=== PATIENT | male | born 1960 | race Caucasian/White ===

== ENCOUNTER 2018-03-01 17:48 | Emergency (ER) | payer OTHER ==
[2018-03-01] MEDS ORDERED: methylPREDNISolone SUCCINATE 125 MG/2 ML VIAL IVP STA (17:57)
[2018-03-01] MEDS ORDERED: EPINEPHrine 1 MG/ML AMP IM STA (17:57)
--- NOTE | 2018-03-01 18:00 | ED Physician Documentation ---
History of Present Illness - Stated complaint Stated Complaint: ALLERGIC REACTION - Chief complaint Chief Complaint: Allergic Rx - History obtained from History obtained from: Patient - History of Present Illness Timing: Today (Stung by bees to face a few hours ago with facial swelling. No throat swelling or dyspnea. Took benadryl 50mg [employer]) Review of Systems Constitutional: reports: Reviewed and negative Ears: reports: Reviewed and negative Nose: reports: Reviewed and negative PD PAST MEDICAL HISTORY - Present Medications Home Medications: Ambulatory Orders Medication Instructions Recorded Confirmed Aspirin 81 mg PO DAILY 03/01/18 03/01/18 Atorvastatin [Lipitor] 10 mg DAILY 03/01/18 03/01/18 EPINEPHrine [Epinephrine] 0.3 mg IJ ONCE PRN #2 auto.injct 03/01/18 Lisinopril 20 mg PO BID 03/01/18 03/01/18 predniSONE [Deltasone] 60 mg PO DAILY 5 Days tablet 03/01/18 - Allergies Allergies/Adverse Reactions: Allergies Allergy/AdvReac Type Severity Reaction Status Date / Time bee venom protein (honey bee) Allergy Edema Verified 03/01/18 17:57 PD ED PE NORMAL - Vitals Vital signs reviewed: Yes - General General: Alert and oriented X 3, No acute distress - HEENT HEENT: PERRL, EOMI, Other (Very significant facial edema, more left than right but involves both sides in the upper lips especially, there is no posterior oropharyngeal edema and his airway is wide open.) - Neck Neck: Supple, no meningeal sign, No bony TTP - Cardiac Cardiac: RRR, No murmur - Respiratory Respiratory: No respiratory distress, Clear bilaterally - Abdomen Abdomen: Non tender - Neuro Neuro: Alert and oriented X 3, Normal speech - Psych Psych: Normal mood, Normal affect Results - Vitals Vitals: Vital Signs - 24 hr 03/01/18 03/01/18 03/01/18 17:55 18:24 18:29 Temperature 36.1 C L Heart Rate 91 84 85 Respiratory 20 14 18 Rate Blood Pressure 146/92 H 136/80 H 136/80 H O2 Saturation 99 98 100 03/01/18 03/01/18 19:28 20:29 Temperature Heart Rate 86 91 Respiratory 16 16 Rate Blood Pressure 132/87 H 135/83 H O2 Saturation 98 97 Oxygen O2 Source Room air PD MEDICAL DECISION MAKING - ED course ED course: 57-year-old gentleman with multiple bee stings to the face. Not anaphylaxis per se but the proximity to the airway made me concerned and we did administer him IM epinephrine and observed him for several hours with clinical improvement. Departure - Departure Disposition: 01 Home, Self Care Clinical Impression: Bee sting reaction Qualifiers: Encounter type: initial encounter Injury intent: accidental or unintentional Qualified Code(s): T63.441A - Toxic effect of venom of bees, accidental ( unintentional), initial encounter Condition: Good Record reviewed to determine appropriate education?: Yes Instructions: ED Bite Sting Insect Gen Allergic React Prescriptions: EPINEPHrine [Epinephrine] 0.3 mg IJ ONCE PRN #2 auto.injct PRN Reason: Allergy Symptoms predniSONE [Deltasone] 60 mg PO DAILY 5 Days tablet Comments: Call your doctor to arrange a follow-up appointment, make the next available appointment. In the interim, return anytime if worse or if new symptoms develop. Your blood pressure was elevated today on check into the emergency department. This does not mean that you have hypertension, it is a common phenomenon to come to the emergency department and have elevated blood pressure. I recommend that you see your primary care physician within the week to have it rechecked when you are feeling better. Discharge Date/Time: 03/01/18 20:36
[2018-03-01] MEDS ORDERED: EPINEPHrine 1 MG/ML AMP ONE (18:04)
[2018-03-01 20:30] VITALS: BP 135/83
== END 2018-03-01 20:36 | disposition home or self-care (01) ==
LOC: ED 17:48
DX: T63.441A Toxic effect of venom of bees, accidental (unintentional), initial encounter (principal); R22.0 Localized swelling, mass and lump, head; R03.0 Elevated blood-pressure reading, without diagnosis of hypertension
CPT/HCPCS: 96372; 96374; 99283